=== PATIENT | female | born 1945 | race Two or more races ===

== ENCOUNTER 2023-04-05 10:34 | Emergency (ER) | payer OTHER ==
[~2023-04-05] VITALS: Ht 162.6 cm; Wt 72.7 kg
[2023-04-05 10:37] VITALS: TEMP 98.4
[2023-04-05] MEDS ORDERED: METO25XL PO (10:42)
[2023-04-05] MEDS ORDERED: CALC-862 PO (10:42)
[2023-04-05] MEDS ORDERED: AMLO-257 PO (10:42)
[2023-04-05] MEDS ORDERED: ATOR20TA PO (10:42)
[2023-04-05] MEDS ORDERED: ALEN70TA65 PO (10:42)
[2023-04-05] MEDS ORDERED: LEVO100 PO (10:42)
[2023-04-05 12:28] LABS: BASOPHILS % (AUTO) 0.5 % (0.0-2.0); EOSINOPHILS % (AUTO) 3.2 % (1.0-6.0); HEMOGLOBIN 12.3 g/dL (12.0-16.0); LYMPHOCYTES # (AUTO) 1.3 K/uL (1.0-4.8); LYMPHOCYTES % (AUTO) 14.9 % (22.0-44.0); MEAN CORPUSCULAR HEMOGLOBIN 27.2 pg (26.0-34.0); MEAN CORPUSCULAR HGB CONC 32.5 G/dL (31.0-37.0); MEAN CORPUSCULAR VOLUME 84 fL (80-100); MONOCYTES # (AUTO) 0.4 K/uL (0.1-1.0); MONOCYTES % (AUTO) 4.5 % (2.0-9.0); NEUTROPHILS # (AUTO) 6.7 K/uL (1.8-7.7); NEUTROPHILS % (AUTO) 76.9 % (40.0-70.0); PLATELET COUNT (AUTO) 360 K/uL (150-450); RED BLOOD CELL COUNT(AUTO) 4.54 MIL/uL (4.00-5.20); RED CELL DISTRIBUTION WIDTH 14.2 % (11.5-14.5)
[2023-04-05 12:37] LABS: ANION GAP 9 mmol/L (8-16); CALCIUM, TOTAL 9.1 mg/dL (8.8-10.5); CARBON DIOXIDE 27 mmol/L (22-29); CHLORIDE 105 mmol/L (98-107); CREATININE 0.74 mg/dL (0.60-1.30); GLOMERULAR FILTR. RATE CALC > 60 mL/min (>60); GLUCOSE,RANDOM 120 mg/dL (70-110); POTASSIUM 4.4 mmol/L (3.5-5.1); SODIUM SERUM 141 mmol/L (136-145)
[2023-04-05 12:42] LABS: PROTHROMBIN TIME 10.1 SEC (9.4-11.6)
[2023-04-05 12:56] LABS: B-TYPE NATRIURETIC PEPTIDE 37 pg/mL (0-100)
[2023-04-05] MEDS ORDERED: ACETAMINOPHEN 500 MG TABLET PO ONE (13:00)
[2023-04-05] MEDS ORDERED: ONDANSETRON HCL 4 MG/2 ML VIAL IVP ONE (13:00)
[2023-04-05 13:02] LABS: ALBUMIN 3.7 g/dL (3.4-5.0); ALKALINE PHOSPHATASE 122 U/L (46-116); ASPARTATE AMINOTRANSFERASE 20 U/L (15-37); BILIRUBIN,TOTAL 0.5 mg/dL (0.1-1.0); CREATINE KINASE, TOTAL ONLY 120 U/L (26-192); TOTAL PROTEIN, SERUM 7.8 g/dL (6.4-8.2)
[2023-04-05 13:15] LABS: ALANINE AMINOTRANSFERASE 18 U/L (12-78)
[2023-04-05] MEDS: MECLIZINE HCL 25 MG TABLET PO ONE ×2 (13:21→13:26)
[2023-04-05 14:00] VITALS: BP 139/82; PULSE 83; RESP 18
[2023-04-05] MEDS ORDERED: ACET-66 PO (14:10)
[2023-04-05] MEDS ORDERED: ONDA-104 PO (14:10)
[2023-04-05] MEDS ORDERED: MECL-134 PO (14:10)
== END 2023-04-05 14:39 | disposition home or self-care (01) ==
LOC: WELLNESS 10:35 → EMS 14:39
DX: R42 Dizziness and giddiness (principal); E78.00 Pure hypercholesterolemia, unspecified; I10 Essential (primary) hypertension; E03.9 Hypothyroidism, unspecified; Z90.710 Acquired absence of both cervix and uterus; Z90.49 Acquired absence of other specified parts of digestive tract; Z91.040 Latex allergy status; Z88.0 Allergy status to penicillin; Z88.5 Allergy status to narcotic agent
CPT/HCPCS: 99285; 96374; 71045; 80053; 82550; 83880; 84484; 85025; 85610; 85730; 93005; J2405